=== PATIENT | male | born 1960 | race Caucasian/White ===

== ENCOUNTER → 2018-04-29 | Outpatient (CLI) | payer OTHER ==
[~2018-04-29] MED LIST: ACET-1757 PO; CYAN50LO PO; ZOLP10TA PO; [UNRECOGNIZED DRUG - REMARK]
== END | disposition home or self-care (01) ==
LOC: EDSTATUS 04-02 16:45 → CFH 13:46
PROVIDERS: ATTEND Family Medicine
DX: R22.31 Localized swelling, mass and lump, right upper limb (principal); R22.32 Localized swelling, mass and lump, left upper limb

== ENCOUNTER 2018-10-16 19:40 | Emergency (ER) | payer OTHER ==
[~2018-10-16] VITALS: Ht 177.8 cm; Wt 104.0 kg
[2018-10-16 19:46] VITALS: BP 140/74
[2018-10-16] MEDS ORDERED: IBUPROFEN 800 MG TABLET PO STA (20:23)
[2018-10-16] MEDS ORDERED: IBUPROFEN 200 MG TABLET ONE (20:24)
== END 2018-10-16 20:39 | disposition home or self-care (01) ==
LOC: ED 20:30
DX: S50.12XA Contusion of left forearm, initial encounter (principal); W19.XXXA Unspecified fall, initial encounter; Y93.89 Activity, other specified; Y92.69 Other specified industrial and construction area as the place of occurrence of the external cause; Y99.8 Other external cause status
CPT/HCPCS: 29260; 99283

== ENCOUNTER 2019-01-29 10:42 | Emergency (ER) | payer BC ==
[~2019-01-29] VITALS: Ht 177.8 cm; Wt 105.3 kg
[2019-01-29 11:29] LABS: BASOPHILS # (AUTO) 0.04 x10^3/uL (0-0.1); BASOPHILS % (AUTO) 1 % (0-1); EOSINOPHILS # (AUTO) 0.26 x10^3/uL (0-0.4); EOSINOPHILS % (AUTO) 4 % (1-7); LYMPHOCYTES # (AUTO) 1.95 x10^3/uL (1-3.4); LYMPHOCYTES % (AUTO) 27 % (22-44); MD NO; MEAN CORPUSCULAR HEMOGLOBIN 30.7 pg (27.5-34.5); MEAN CORPUSCULAR HGB CONC 34.9 g/dL (33.2-36.2); MEAN PLATELET VOLUME 9.8 fL (7.4-10.4); MONOCYTES # (AUTO) 0.62 x10^3/uL (0.2-0.8); MONOCYTES % (AUTO) 9 % (2-9); NEUTROPHILS # (AUTO) 4.41 x10^3/uL (1.8-6.8); NEUTROPHILS % (AUTO) 61 % (42-75); PLATELET COUNT 176 x10^3/uL (130-400); RED BLOOD COUNT 5.41 x10^6/uL (4.38-5.82)
[2019-01-29 11:40] LABS: CHLORIDE 109 mmol/L (98-107)
--- NOTE | 2019-01-29 11:41 | NUR ---
TITLE INSPECTOR: PT TO ED ROOM 21 FROM LOBBY AT THIS TIME
[2019-01-29 11:48] LABS: ALANINE AMINOTRANSFERASE 75 U/L (12-78); ALKALINE PHOSPHATASE 82 U/L (45-117); ANION GAP 4 mmol/L (5-15); BILIRUBIN,TOTAL 0.6 mg/dL (0.2-1.0); CALCIUM 8.9 mg/dL (8.5-10.1); CREATININE 1.36 mg/dL (0.7-1.3)
--- NOTE | 2019-01-29 11:48 | NUR ---
PT STATED THAT HE HAS LOW BACK PAIN, ALIE GROIN PAIN, PAIN WITH BM, BODY ACHES, AND TIRED FOR 2 WEEKS. PT IS ALERT, ORIENTED, WITH JOHNNY. AT BEDSIDE. CALL LIGHT WITHIN REACH.
[2019-01-29 12:13] LABS: MICROSCOPIC NOT IND
[2019-01-29 12:23] LABS: CULTURE INDICATED? NO
--- NOTE | 2019-01-29 12:41 | NUR ---
TASK RN NOTE: PIV PLACED FOR CT SCAN. BP AND SPO2 MONITORS IN PLACE. CALL LIGHT IN REACH. BED LOCKED AND IN LOWEST POSITION. PT AWAITING CT SCAN AT THIS TIME, PT A&O, RESPS EVEN AND UNLABORED, NADN AT THIS TIME.
[2019-01-29] MEDS ORDERED: OMNIPAQUE 350 MG/ML, 100ML BOTTLE ONE (13:04)
--- NOTE | 2019-01-29 13:49 | NUR ---
PT AMBULATED TO BATHROOM WITH STEADY GAIT.
[2019-01-29 13:50] VITALS: BP 107/64
--- NOTE | 2019-01-29 14:28 | NUR ---
Patient given discharge instructions and they have confirmed that they understand the instructions. Patient ambulatory with steady gait.
== END 2019-01-29 14:30 | disposition home or self-care (01) ==
LOC: ED 13:43
DX: N41.0 Acute prostatitis (principal); Z90.49 Acquired absence of other specified parts of digestive tract; Z90.89 Acquired absence of other organs
CPT/HCPCS: 36415; 74177; 80053; 81003; 83690; 85025; 99284; Q9967

== ENCOUNTER 2019-02-08 10:16 | Emergency (ER) | payer BC ==
[~2019-02-08] VITALS: Ht 180.3 cm; Wt 103.3 kg
--- NOTE | 2019-02-08 10:47 | NUR ---
Pt to room from lobby.
--- NOTE | 2019-02-08 11:10 | NUR ---
MD AT BEDSIDE EXAMINING PT
[2019-02-08] MEDS ORDERED: CIPROFLOXACIN/PMX 400MG/200ML 200 ML ONE (11:57)
[2019-02-08] MEDS ORDERED: CIPROFLOXACIN/PMX 400MG/200ML 200 ML IVPB ONE (12:00)
[2019-02-08] MEDS ORDERED: SODIUM CHLORIDE FLUSH 10ML SYR IVF ONE (12:00)
--- NOTE | 2019-02-08 12:00 | NUR ---
AFTER TWO SETS OF CULTURES OBTAINED, IV ANTIBIOTICS INFUSING. PT TO ULTRASOUND
[2019-02-08 12:02] LABS: BASOPHILS # (AUTO) 0.03 x10^3/uL (0-0.1); BASOPHILS % (AUTO) 1 % (0-1); EOSINOPHILS # (AUTO) 0.16 x10^3/uL (0-0.4); EOSINOPHILS % (AUTO) 3 % (1-7); LYMPHOCYTES # (AUTO) 1.21 x10^3/uL (1-3.4); LYMPHOCYTES % (AUTO) 20 % (22-44); MD NO; MEAN CORPUSCULAR HEMOGLOBIN 30.5 pg (27.5-34.5); MEAN CORPUSCULAR HGB CONC 34.6 g/dL (33.2-36.2); MEAN PLATELET VOLUME 10.1 fL (7.4-10.4); MONOCYTES # (AUTO) 0.61 x10^3/uL (0.2-0.8); MONOCYTES % (AUTO) 10 % (2-9); NEUTROPHILS # (AUTO) 4.01 x10^3/uL (1.8-6.8); NEUTROPHILS % (AUTO) 67 % (42-75); PLATELET COUNT 194 x10^3/uL (130-400); RED CELL DISTRIBUTION WIDTH 14.1 % (9.4-14.8)
[2019-02-08 12:10] LABS: ALBUMIN 4.3 g/dL (3.4-5.0); ANION GAP 7 mmol/L (5-15); CHLORIDE 107 mmol/L (98-107); CREATININE 1.55 mg/dL (0.7-1.3)
[2019-02-08 12:51] VITALS: BP 120/79
--- NOTE | 2019-02-08 12:51 | NUR ---
UPON RETURN FROM ULTRASOUND, PT AMBULATED TO BATHROOM TO PROVIDE URINE SAMPLE
[2019-02-08 13:30] LABS: CULTURE INDICATED? NO; MICROSCOPIC NOT IND
== END 2019-02-08 14:10 | disposition home or self-care (01) ==
LOC: ED 13:19
DX: N41.0 Acute prostatitis (principal); Z88.0 Allergy status to penicillin
CPT/HCPCS: 36415; 76870; 80048; 81003; 82040; 83605; 85025; 87040; 96365; 99284; J0744

== ENCOUNTER 2019-02-19 18:33 | Emergency (ER) | payer BC ==
[~2019-02-19] VITALS: Ht 180.3 cm; Wt 101.0 kg
--- NOTE | 2019-02-19 18:47 | NUR ---
Pt taken of cipro (for prostate infection) due to allergic reaction 3 days ago, pt has been taking benadryl since, states one hour ago he developed throat swelling and sore throat when swallowing. Speaking full sentences on assesment, rm air sats 99%, no obv resp distress noted.
--- NOTE | 2019-02-19 19:07 | NUR ---
LUNCH RN: DR. AKERS AT BEDSIDE EVALUATING PT.
[2019-02-19 19:18] LABS: BASOPHILS # (AUTO) 0.06 x10^3/uL (0-0.1); BASOPHILS % (AUTO) 1 % (0-1); EOSINOPHILS # (AUTO) 0.09 x10^3/uL (0-0.4); EOSINOPHILS % (AUTO) 1 % (1-7); LYMPHOCYTES # (AUTO) 1.39 x10^3/uL (1-3.4); LYMPHOCYTES % (AUTO) 19 % (22-44); MD NO; MEAN CORPUSCULAR HEMOGLOBIN 30.5 pg (27.5-34.5); MEAN CORPUSCULAR HGB CONC 34.9 g/dL (33.2-36.2); MEAN CORPUSCULAR VOLUME 87.6 fL (81-97); MONOCYTES # (AUTO) 1.18 x10^3/uL (0.2-0.8); MONOCYTES % (AUTO) 16 % (2-9); NEUTROPHILS # (AUTO) 4.47 x10^3/uL (1.8-6.8); NEUTROPHILS % (AUTO) 62 % (42-75); PLATELET COUNT 190 x10^3/uL (130-400); RED BLOOD COUNT 5.12 x10^6/uL (4.38-5.82); RED CELL DISTRIBUTION WIDTH 14.1 % (9.4-14.8)
[2019-02-19 19:29] VITALS: BP 118/78
[2019-02-19 19:30] LABS: ALANINE AMINOTRANSFERASE 117 U/L (12-78); ALBUMIN 4.1 g/dL (3.4-5.0); ANION GAP 4 mmol/L (5-15); CALCIUM 8.9 mg/dL (8.5-10.1); CHLORIDE 109 mmol/L (98-107); CREATININE 1.56 mg/dL (0.7-1.3)
[2019-02-19] MEDS ORDERED: SODIUM CHLORIDE FLUSH 10ML SYR IVF ONE (19:30)
[2019-02-19 19:35] LABS: ALKALINE PHOSPHATASE 82 U/L (45-117); BILIRUBIN,TOTAL 0.4 mg/dL (0.2-1.0); TOTAL PROTEIN 7.7 g/dL (6.4-8.2); TROPONIN I < 0.015 ng/mL (0.000-0.045)
--- NOTE | 2019-02-19 19:41 | NUR ---
DESHAWN RN: PT IN CT
[2019-02-19] MEDS ORDERED: OMNIPAQUE 350 MG/ML, 100ML BOTTLE ONE (20:00)
== END 2019-02-19 20:37 | disposition home or self-care (01) ==
LOC: ED 19:46
DX: R06.00 Dyspnea, unspecified (principal); M54.2 Cervicalgia
CPT/HCPCS: 36415; 70491; 71045; 80053; 83880; 84484; 85025; 87081; 87880; 93005; 99284; Q9967

== ENCOUNTER 2019-10-10 15:04 | Emergency (ER) | payer BC ==
[~2019-10-10] VITALS: Ht 180.3 cm; Wt 102.0 kg
[~2019-10-10 15:04] MED LIST changes: -ACET-1757 PO; +ACET-2065 PO
--- NOTE | 2019-10-10 15:14 | NUR ---
TASK RN: BIB [facility] FROM HOME W/ CO MILLER AND CP, ONSET THIS AM. +PHOTOPHOBIA/N/V. CP RADIATES FROM STERNUM TO EPIGASTRIC, "PRESSURE AND TWISTING", TENDER TO PALPATION. BILAT BP EQUAL. L EYE/TEMPORAL "ELECTRIC" PAIN. UNKNOWN IF CHANGES IN VISION. PT ARRIVES A&OX4, SPEECH CLEAR, FACE SYMMETRICAL. NO CARDIAC HX. HX OF MIGRAINES "THIS DOES NOT FEEL LIKE MY NORMAL HEADACHE" GIVEN ASA AND NITRO BOTTLE CAPPER W NO CHANGE IN CP. BP/SPO2/ECG MONITORING IN PLACE. NSR ON MONITOR. EKG COMPLETED UPON ARRIVAL. REPORT TO PRIMARY RNHECTOR.
[2019-10-10] MEDS ORDERED: SODIUM CHLORIDE FLUSH 10ML SYR IVF ONE (15:30)
[2019-10-10] MEDS ORDERED: MORPHINE SULFATE 4 MG/ML, 1ML IVPush PRN (15:30)
[2019-10-10] MEDS ORDERED: MORPHINE SULFATE 4 MG/ML, 1ML ONE (15:32)
--- NOTE | 2019-10-10 15:36 | NUR ---
Received report from RINKU Campos. All questions answered. Assuming care of pt at this time. Pt resting on gurney with lab at bedside. Pt had one episode of small emesis of stomach contents. Pt offered medicaiton per EMAR. Pt declined stating, "morphine makes me hallucinate." Pt has family at bedside. EDMD aware. NADN. Pt resting connected to NIBP cuff, continous pusle ox monitor, and child monitor. Bedrails up x 2 and call light within reach.
[2019-10-10 15:51] LABS: BASOPHILS # (AUTO) 0.04 x10^3/uL (0-0.1); BASOPHILS % (AUTO) 1 % (0-1); EOSINOPHILS # (AUTO) 0.24 x10^3/uL (0-0.4); EOSINOPHILS % (AUTO) 3 % (1-7); LYMPHOCYTES # (AUTO) 1.82 x10^3/uL (1-3.4); LYMPHOCYTES % (AUTO) 22 % (22-44); MD NO; MEAN CORPUSCULAR HGB CONC 34.1 g/dL (33.2-36.2); MONOCYTES # (AUTO) 0.86 x10^3/uL (0.2-0.8); MONOCYTES % (AUTO) 11 % (2-9); NEUTROPHILS # (AUTO) 5.19 x10^3/uL (1.8-6.8); NEUTROPHILS % (AUTO) 64 % (42-75); PLATELET COUNT 175 x10^3/uL (130-400); RED BLOOD COUNT 5.55 x10^6/uL (4.38-5.82); RED CELL DISTRIBUTION WIDTH 14.1 % (9.4-14.8)
[2019-10-10 15:56] LABS: ALBUMIN 3.8 g/dL (3.4-5.0); ANION GAP 6 mmol/L (5-15); CALCIUM 8.7 mg/dL (8.5-10.1); CHLORIDE 107 mmol/L (98-107); CREATININE 1.31 mg/dL (0.7-1.3)
[2019-10-10 16:03] LABS: TROPONIN I < 0.015 ng/mL (0.000-0.045)
--- NOTE | 2019-10-10 16:32 | NUR ---
Called CT to get ETA for imaging. Per CT, "he is the next patient up."
[2019-10-10 17:02] LABS: HCT (SEDRATE) 48.8 % (39.2-51.8)
[2019-10-10] MEDS ORDERED: METOCLOPRAMIDE 5 MG/ML, 2ML ONE (17:28)
[2019-10-10] MEDS ORDERED: METOCLOPRAMIDE 5 MG/ML, 2ML IVPush ONE (17:30)
[2019-10-10] MEDS ORDERED: KETOROLAC 30 MG/1 ML ONE (17:30)
[2019-10-10 17:36] VITALS: BP 130/91
--- NOTE | 2019-10-10 17:37 | NUR ---
Provided medication per EMAR to pt. Pt appreciative.
[2019-10-10] MEDS ORDERED: KETOROLAC 30 MG/1 ML IVPush ONE (18:00)
--- NOTE | 2019-10-10 18:31 | NUR ---
Patient given discharge instructions and they have confirmed that they understand the instructions. Patient ambulatory with steady gait. Pt left with d/c paperwork and all personal belongings.
== END 2019-10-10 18:32 | disposition home or self-care (01) ==
LOC: ED 16:34
DX: R51 Headache (principal); R07.89 Other chest pain
CPT/HCPCS: 36415; 70450; 71045; 80048; 82040; 84484; 85025; 85651; 93005; 96374; 99284; J1885

== ENCOUNTER 2021-01-10 08:33 | Emergency (ER) | payer BC, OTHER ==
[~2021-01-10] VITALS: Ht 177.8 cm; Wt 102.0 kg
--- NOTE | 2021-01-10 08:49 | NUR ---
Pt presents from work, where someone else called EMS. "I was laying on my back, they said don't move we're calling 911." Pt presents A&Ox4. D/x c bronchitis x2 weeks ago "he gave me a double dose of the abx." Taking as prescribed, "Friday will make 14 days." Pt has unconfirmed [place] in 2017 and stroke in 2020, was admitted to the hospital both times. Connected to all monitors. Watching TV for distraction. MD Faith to bedside for eval.
[2021-01-10] MEDS ORDERED: KETOROLAC 30 MG/1 ML IVPush ONE (09:00)
[2021-01-10] MEDS ORDERED: SODIUM CHLORIDE FLUSH 10ML SYR IVF ONE (09:00)
[2021-01-10 09:05] LABS: BASOPHILS % (AUTO) 1 % (0-1); EOSINOPHILS % (AUTO) 2 % (1-7); LYMPHOCYTES % (AUTO) 25 % (22-44); MEAN CORPUSCULAR HEMOGLOBIN 30.5 pg (27.5-34.5); MEAN CORPUSCULAR HGB CONC 34.6 g/dL (33.2-36.2); MEAN PLATELET VOLUME 9.5 fL (7.4-10.4); MONOCYTES % (AUTO) 9 % (2-9); NEUTROPHILS % (AUTO) 63 % (42-75); PLATELET COUNT 185 x10^3/uL (130-400); RED BLOOD COUNT 5.56 x10^6/uL (4.38-5.82); RED CELL DISTRIBUTION WIDTH 13.9 % (9.4-14.8)
[2021-01-10 09:09] LABS: MD NO
[2021-01-10 09:17] LABS: ALANINE AMINOTRANSFERASE 93 U/L (12-78); ALBUMIN 4.3 g/dL (3.4-5.0); ANION GAP 5 mmol/L (5-15); CALCIUM 9.6 mg/dL (8.5-10.1); CHLORIDE 112 mmol/L (98-107)
[2021-01-10] MEDS ORDERED: KETOROLAC 30 MG/1 ML ONE (09:21)
[2021-01-10 09:22] LABS: ALKALINE PHOSPHATASE 79 U/L (45-117); BILIRUBIN,TOTAL 0.8 mg/dL (0.2-1.0); TOTAL PROTEIN 7.4 g/dL (6.4-8.2); TROPONIN I < 0.015 ng/mL (0.000-0.045)
[2021-01-10 09:24] VITALS: BP 110/77
--- NOTE | 2021-01-10 09:40 | NUR ---
BREAK RN: PT UPRIGHT ON GURNEY AWAKE & COMFORTABLE, WATCHING TV, NO NEEDS AT THIS TIME, NAD, CALL LIGHT WITHIN REACH.
[2021-01-10] MEDS ORDERED: OMNIPAQUE 350 MG/ML, 100ML BOTTLE ONE (09:58)
--- NOTE | 2021-01-10 10:32 | NUR ---
MD Faith back to bedside to update pt on POC.
[2021-01-10] MEDS ORDERED: RIVAROXABAN 15 MG TABLET PO ONE (11:00)
--- NOTE | 2021-01-10 11:39 | NUR ---
DC INSTRUCTIONS REVIEWED
== END 2021-01-10 11:41 | disposition home or self-care (01) ==
LOC: ED 10:15
DX: I26.99 Other pulmonary embolism without acute cor pulmonale (principal); J20.9 Acute bronchitis, unspecified; R07.89 Other chest pain; R42 Dizziness and giddiness; R05 Cough; I10 Essential (primary) hypertension; R06.02 Shortness of breath; Z90.89 Acquired absence of other organs; Z87.891 Personal history of nicotine dependence; Z90.49 Acquired absence of other specified parts of digestive tract
CPT/HCPCS: 36415; 71045; 71275; 80053; 83690; 84484; 85025; 93005; 96374; 99285; J1885; Q9967

== ENCOUNTER 2021-01-11 21:17 | Inpatient (IN) | payer OTHER ==
[~2021-01-11] VITALS: Ht 180.3 cm; Wt 102.8 kg
--- NOTE | 2021-01-11 21:30 | NUR ---
MOVED TO ROOM 18
--- NOTE | 2021-01-11 21:40 | NUR ---
PT BIB VIA POV. PER PT "I WAS HERE YESTERDAY MORNING AND WAS DIAGNOSED WITH BLOOD CLOTS IN MY LUNGS AND TOLD TO COME BACK IF SYMPTOMS GET WORSE" REPORTS CHEST PAIN AND SOB IS INCREASED THIS EVENING. PT STATES CP IS 8/10 AND FEELS LIKE PRESSURE. PT RESTING IN [place], MONITORING IN PLACE, NADN AT THIS TIME, PIV INSERTED, EKG DONE, WCTM.
[2021-01-11 22:29] LABS: BASOPHILS % (AUTO) 1 % (0-1); EOSINOPHILS % (AUTO) 2 % (1-7); LYMPHOCYTES % (AUTO) 25 % (22-44); MEAN CORPUSCULAR HEMOGLOBIN 30.5 pg (27.5-34.5); MEAN CORPUSCULAR HGB CONC 34.9 g/dL (33.2-36.2); MEAN PLATELET VOLUME 9.7 fL (7.4-10.4); MONOCYTES % (AUTO) 11 % (2-9); NEUTROPHILS % (AUTO) 61 % (42-75); PLATELET COUNT 181 x10^3/uL (130-400); RED BLOOD COUNT 5.27 x10^6/uL (4.38-5.82)
[2021-01-11 22:31] LABS: MD NO
[2021-01-11 22:41] LABS: ALANINE AMINOTRANSFERASE 78 U/L (12-78); ALBUMIN 3.8 g/dL (3.4-5.0); ANION GAP 9 mmol/L (5-15); CALCIUM 8.7 mg/dL (8.5-10.1); CHLORIDE 112 mmol/L (98-107); CREATININE 1.23 mg/dL (0.7-1.3)
[2021-01-11 22:46] LABS: ALKALINE PHOSPHATASE 81 U/L (45-117); BILIRUBIN,TOTAL 0.6 mg/dL (0.2-1.0); TOTAL PROTEIN 6.9 g/dL (6.4-8.2); TROPONIN I < 0.015 ng/mL (0.000-0.045)
[2021-01-11 22:50] LABS: INTERNATIONAL NORMALIZED RATIO 1.01 (0.93-1.1); PROTHROMBIN TIME 10.8 Seconds (9.6-11.5)
[2021-01-11] MEDS ORDERED: LORazepam 2 MG/ML, 1ML ONE (23:25)
[2021-01-11] MEDS ORDERED: ENOXAPARIN 100 MG/ML ONE (23:25)
[2021-01-11] MEDS ORDERED: ENOXAPARIN 100 MG/ML SQ ONE (23:30)
[2021-01-11] MEDS ORDERED: LORazepam 2 MG/ML, 1ML IVPush ONE (23:30)
[2021-01-12] MEDS ORDERED: POLYETHYLENE GLYCOL 17 GM PACKET PO PRN
[2021-01-12] MEDS ORDERED: ACETAMINOPHEN 325 MG TABLET PO PRN
[2021-01-12] MEDS ORDERED: DOCUSATE 100 MG CAPSULE PO PRN
[2021-01-12] MEDS ORDERED: OXYcodone IR 5MG TABLET PO PRN
[2021-01-12] MEDS ORDERED: PROMETHAZINE 25 MG/ML, 1ML IM PRN
[2021-01-12] MEDS ORDERED: ONDANSETRON 2MG/ML, 2ML IVPush PRN
[2021-01-12] MEDS ORDERED: ONDANSETRON ODT 4 MG PO PRN
[2021-01-12] MEDS ORDERED: hydrALAzine 20 MG/ML, 1ML IVPush PRN
[2021-01-12] MEDS ORDERED: BISACODYL 10 MG SUPP PR PRN
[2021-01-12 00:13] VITALS: BP 150/98
[2021-01-12] MEDS ORDERED: GUAIFENESIN/DM 200-20MG, 10ML UDC PO PRN (02:00)
[2021-01-12 05:35] LABS: BASOPHILS % (AUTO) 1 % (0-1); EOSINOPHILS % (AUTO) 3 % (1-7); LYMPHOCYTES % (AUTO) 30 % (22-44); MEAN CORPUSCULAR HEMOGLOBIN 30.5 pg (27.5-34.5); MEAN CORPUSCULAR HGB CONC 34.2 g/dL (33.2-36.2); MEAN PLATELET VOLUME 10.1 fL (7.4-10.4); MONOCYTES % (AUTO) 8 % (2-9); NEUTROPHILS % (AUTO) 58 % (42-75); PLATELET COUNT 169 x10^3/uL (130-400); RED BLOOD COUNT 5.27 x10^6/uL (4.38-5.82); RED CELL DISTRIBUTION WIDTH 13.7 % (9.4-14.8)
[2021-01-12 05:41] LABS: ALBUMIN 3.8 g/dL (3.4-5.0); ANION GAP 9 mmol/L (5-15); CALCIUM 8.9 mg/dL (8.5-10.1); CHLORIDE 113 mmol/L (98-107)
[2021-01-12 05:43] LABS: MD NO
[2021-01-12 06:07] LABS: ALANINE AMINOTRANSFERASE 73 U/L (12-78); ALKALINE PHOSPHATASE 71 U/L (45-117); BILIRUBIN,TOTAL 0.5 mg/dL (0.2-1.0); CHOL/HDL RATIO 5.3; CHOLESTEROL, TOTAL 160 mg/dL (140-239); CREATININE 1.16 mg/dL (0.7-1.3); HDL CHOL % 19 % (26-37); HDL CHOLESTEROL (DIRECT) 30 mg/dL (40-60); LDL CHOLESTEROL,CALCULATED 81 mg/dL (54-169); LDL/HDL RATIO 2.7 (0.5-3.0); TOTAL PROTEIN 6.5 g/dL (6.4-8.2); TRIGLYCERIDES 245 mg/dL (50-200); VLDL CHOLESTEROL 49 mg/dL (0-25)
[2021-01-12 07:34] VITALS: BP 104/66
[2021-01-12] MEDS ORDERED: LOSA25TA25 PO (08:11)
[2021-01-12] MEDS ORDERED: CHOL500045 PO (08:11)
[2021-01-12] MEDS ORDERED: CHOLECALCIFEROL 5,000u TAB PO SCH (09:00)
[2021-01-12] MEDS ORDERED: LOSARTAN 25MG TABLET PO SCH (09:00)
[2021-01-12] MEDS ORDERED: ENOXAPARIN 100 MG/ML SQ SCH (11:00)
[2021-01-12 13:19] VITALS: BP 133/86
[2021-01-12] MEDS ORDERED: BUSP5TAB2 PO (16:35)
== END 2021-01-12 17:23 | disposition home or self-care (01) | DRG 176 ==
LOC: ED 21:47 → INTOOBSV 23:58 → OBSVTOIN 23:58 → EDIP 23:58 → 5SO 01-12 00:08
PROVIDERS: ADMIT Internal Medicine; ATTEND Hospitalist
DX: I26.99 Other pulmonary embolism without acute cor pulmonale (principal); E55.9 Vitamin D deficiency, unspecified; F41.1 Generalized anxiety disorder; I10 Essential (primary) hypertension; Z79.01 Long term (current) use of anticoagulants; Z79.899 Other long term (current) drug therapy; Z88.8 Allergy status to other drugs, medicaments and biological substances; Z80.6 Family history of leukemia; Z82.49 Family history of ischemic heart disease and other diseases of the circulatory system; Z87.891 Personal history of nicotine dependence; Z90.49 Acquired absence of other specified parts of digestive tract
CPT/HCPCS: 36415; 80053; 80061; 82306; 82607; 83036; 83735; 83880; 84443; 84484; 85025; 85610; 93005; 93306; 93356; 96372; 96374; 99285; J1650; J2060

== ENCOUNTER 2021-01-26 02:36 | Emergency (ER) | payer OTHER ==
[~2021-01-26] VITALS: Ht 177.8 cm; Wt 99.6 kg
[~2021-01-26 02:36] MED LIST changes: +BUSP5TAB2 PO; +CHOL500045 PO; +LOSA25TA25 PO
[2021-01-26] MEDS ORDERED: SODIUM CHLORIDE 0.9% 1,000ML IVBOLUS ONE (03:00)
[2021-01-26] MEDS ORDERED: ONDANSETRON 2MG/ML, 2ML IVPush ONE (03:00)
[2021-01-26] MEDS ORDERED: SODIUM CHLORIDE FLUSH 10ML SYR IVF ONE (03:00)
[2021-01-26] MEDS ORDERED: HYDROmorphone 1 MG/ML, 1ML INJ IVPush PRN (03:00)
[2021-01-26] MEDS ORDERED: HYDROmorphone 1 MG/ML, 1ML INJ ONE (03:08)
[2021-01-26] MEDS ORDERED: ONDANSETRON 2MG/ML, 2ML ONE (03:08)
[2021-01-26 03:18] LABS: BASOPHILS % (AUTO) 1 % (0-1); EOSINOPHILS % (AUTO) 2 % (1-7); LYMPHOCYTES % (AUTO) 27 % (22-44); MEAN CORPUSCULAR HEMOGLOBIN 30.6 pg (27.5-34.5); MEAN CORPUSCULAR HGB CONC 34.8 g/dL (33.2-36.2); MONOCYTES % (AUTO) 9 % (2-9); NEUTROPHILS % (AUTO) 61 % (42-75); PLATELET COUNT 184 x10^3/uL (130-400); RED CELL DISTRIBUTION WIDTH 14.2 % (9.4-14.8)
--- NOTE | 2021-01-26 03:18 | NUR ---
Covering primary nurse for break, IV started by JQ. Pt medicated per order. On monitor, VSS, RR equal and unlabored. Call celaya in reach, IVF wide open. Will continue to monitor.
[2021-01-26 03:19] LABS: MD NO
[2021-01-26 03:29] LABS: ANION GAP 9 mmol/L (5-15); CALCIUM 9.1 mg/dL (8.5-10.1); CHLORIDE 109 mmol/L (98-107); CREATININE 1.18 mg/dL (0.7-1.3)
[2021-01-26 03:30] LABS: ALANINE AMINOTRANSFERASE 71 U/L (12-78); ALBUMIN 4.2 g/dL (3.4-5.0)
[2021-01-26 03:32] LABS: ALKALINE PHOSPHATASE 75 U/L (45-117); BILIRUBIN,TOTAL 0.9 mg/dL (0.2-1.0); TOTAL PROTEIN 7.4 g/dL (6.4-8.2)
[2021-01-26] MEDS ORDERED: OMNIPAQUE 350 MG/ML, 100ML BOTTLE ONE (04:10)
[2021-01-26 05:27] LABS: MICROSCOPIC NOT IND
[2021-01-26 05:46] VITALS: BP 109/59
--- NOTE | 2021-01-26 05:47 | NUR ---
Discharge instructions given. All questions and concerns addressed. Patient ambulatory with a steady gait. Belongings with patient.
== END 2021-01-26 05:55 | disposition home or self-care (01) ==
LOC: ED 03:28
DX: R10.32 Left lower quadrant pain (principal); R19.7 Diarrhea, unspecified; I10 Essential (primary) hypertension; E11.9 Type 2 diabetes mellitus without complications; Z86.711 Personal history of pulmonary embolism; Z90.49 Acquired absence of other specified parts of digestive tract; Z90.89 Acquired absence of other organs; Z89.029 Acquired absence of unspecified finger(s)
CPT/HCPCS: 36415; 74177; 80053; 81003; 83690; 85025; 96374; 99285; J2405; J7030; Q9967

== ENCOUNTER 2021-02-01 11:22 | Emergency (ER) | payer OTHER ==
[~2021-02-01] VITALS: Ht 180.3 cm; Wt 101.0 kg
--- NOTE | 2021-02-01 12:52 | NUR ---
SANDING MACHINE TENDER: PT TO ROOM FROM LOBBY VIA W/C
[2021-02-01] MEDS ORDERED: OXYcodone/APAP 5/325MG TABLET PO ONE (14:00)
--- NOTE | 2021-02-01 14:15 | NUR ---
PT TO CT AT THIS TIME VIA [facility].
[2021-02-01] MEDS ORDERED: OXYcodone/APAP 5/325MG TABLET ONE (14:21)
--- NOTE | 2021-02-01 15:13 | NUR ---
report received from Yue DOBBS, pt care transferred at this time.
--- NOTE | 2021-02-01 15:17 | NUR ---
REPORT GIVEN TO RINKU CORONA.
--- NOTE | 2021-02-01 15:20 | NUR ---
pt resting on gurney, nad, appears comfortable, bed in lowest, rails engaged, call light on lap, denies additional questions or needs at this time. wctm. chart up for recheck
[2021-02-01 15:57] VITALS: BP 141/92
--- NOTE | 2021-02-01 16:10 | NUR ---
Patient given discharge instructions and they have confirmed that they understand the instructions. Patient ambulatory with slight limp, nad, denies additional questions or needs at this time. no personal belongings left in room after dc.
== END 2021-02-01 16:12 | disposition home or self-care (01) ==
LOC: ED 14:28
DX: G89.11 Acute pain due to trauma (principal); M25.552 Pain in left hip; M54.5 Low back pain; R20.0 Anesthesia of skin; F17.210 Nicotine dependence, cigarettes, uncomplicated; I10 Essential (primary) hypertension; Z88.8 Allergy status to other drugs, medicaments and biological substances; Z88.1 Allergy status to other antibiotic agents; Z90.49 Acquired absence of other specified parts of digestive tract; Z90.89 Acquired absence of other organs
CPT/HCPCS: 72110; 72192; 99284

== ENCOUNTER 2021-02-12 08:40 | Emergency (ER) | payer OTHER ==
--- NOTE | 2021-02-12 09:01 | NUR ---
PT BIB [facility] FOR SOB/DIZZINESS AFTER TAKING ELAQUIS THIS MORNING AT 0630. INSURANCE CANCELLED HIS [place] WHICH HE TOOK YESTERDAY (02/11). HX OF PE 6 WKS AGO. PT CHANGED INTO GOWN, MONITORS IN PLACE. NAD/VSS. COMFORT MEASURES PROVIDED.
[2021-02-12 09:07] LABS: BASOPHILS % (AUTO) 1 % (0-1); EOSINOPHILS % (AUTO) 2 % (1-7); LYMPHOCYTES % (AUTO) 27 % (22-44); MD NO; MEAN CORPUSCULAR HEMOGLOBIN 30.6 pg (27.5-34.5); MEAN CORPUSCULAR HGB CONC 34.9 g/dL (33.2-36.2); MEAN PLATELET VOLUME 9.6 fL (7.4-10.4); MONOCYTES % (AUTO) 10 % (2-9); NEUTROPHILS % (AUTO) 60 % (42-75); PLATELET COUNT 181 x10^3/uL (130-400); RED BLOOD COUNT 5.25 x10^6/uL (4.38-5.82); RED CELL DISTRIBUTION WIDTH 13.9 % (9.4-14.8)
[2021-02-12 09:18] LABS: INTERNATIONAL NORMALIZED RATIO 1.1 (0.93-1.1); PROTHROMBIN TIME 11.8 Seconds (9.6-11.5)
[2021-02-12 09:19] LABS: ALANINE AMINOTRANSFERASE 70 U/L (12-78); ANION GAP 7 mmol/L (5-15); CALCIUM 8.8 mg/dL (8.5-10.1); CHLORIDE 110 mmol/L (98-107); CREATININE 1.12 mg/dL (0.7-1.3)
[2021-02-12 09:23] LABS: ALKALINE PHOSPHATASE 69 U/L (45-117); BILIRUBIN,TOTAL 0.8 mg/dL (0.2-1.0); TOTAL PROTEIN 7.1 g/dL (6.4-8.2); TROPONIN I < 0.015 ng/mL (0.000-0.045)
[2021-02-12] MEDS ORDERED: APIX5TAB PO (09:49)
--- NOTE | 2021-02-12 09:49 | NUR ---
ALL TESTS RESULTED, CHART UP FOR RECHECK. PT AWARE
[2021-02-12] MEDS ORDERED: OMNIPAQUE 350 MG/ML, 75ML BOTTLE ONE (10:42)
[2021-02-12 11:03] VITALS: BP 125/87
--- NOTE | 2021-02-12 11:03 | NUR ---
VERIFIED CT NEGATIVE FOR PE. PT AMBULATORY TO BR, UPRIGHT/STEADY GAIT. RETURNED TO ROOM WITHOUT INCIDENT
--- NOTE | 2021-02-12 11:05 | NUR ---
CT RESULTED, PT CHART UP FOR RECHECK. PT AWARE
--- NOTE | 2021-02-12 11:51 | NUR ---
Patient/Caregiver given discharge instructions and they have confirmed that they understand the instructions. Patient ambulatory with steady gait.
== END 2021-02-12 11:55 | disposition home or self-care (01) ==
LOC: ED 09:04
DX: R55 Syncope and collapse (principal); R07.9 Chest pain, unspecified; R06.00 Dyspnea, unspecified; I10 Essential (primary) hypertension
CPT/HCPCS: 36415; 71045; 71275; 80053; 83880; 84484; 85025; 85610; 85730; 93005; 99285; Q9967

== ENCOUNTER 2021-04-25 09:59 | Outpatient (CLI) | payer SELFPAY ==
[~2021-04-25 09:59] MED LIST changes: +APIX5TAB PO
== END 2021-04-25 23:59 | disposition home or self-care (01) ==
LOC: CFH 09:59
PROVIDERS: ATTEND Internal Medicine
DX: Z02.9 Encounter for administrative examinations, unspecified (principal)

== ENCOUNTER 2021-05-31 07:54 | Outpatient (CLI) | payer BC, OTHER ==
[2021-05-31] MEDS ORDERED: OMNIPAQUE 350 MG/ML, 100ML BOTTLE ONE (08:15)
== END 2021-05-31 23:59 | disposition home or self-care (01) ==
LOC: CFH 07:54
PROVIDERS: ATTEND Internal Medicine
DX: I26.99 Other pulmonary embolism without acute cor pulmonale (principal); K76.0 Fatty (change of) liver, not elsewhere classified
CPT/HCPCS: 71275; Q9967